=== PATIENT | male | born 1945 | race Caucasian/White ===

== ENCOUNTER → 2016-11-26 | Day surgery (SDC) | payer OTHER ==
[~2016-11-26] MED LIST: ACETAMINOPHEN 1000 MG/100 ML 100 ML IV ONE; BUPIVACAINE/EPINEPHRINE 0.25% PF 30 ML VIAL INFIL ONE; KETOROLAC TROMETHAMINE 30 MG/ML (IVP) VIAL IV PUSH ONE; LACTATED RINGER'S 1000 ML INJ 1,000 ML ONE; LIDOCAINE 1.5%/EPINEPHrine 1:200,000 PF SOLN 30 ML AMP ONE; MIDAZOLAM HCL 2 MG/2 ML VIAL ONE; NEOMYCIN/POLYMYXIN/BACITRACIN OINT 15 GM TUBE TOPICAL ONE; ONDANSETRON HCL 4 MG/2 ML VIAL IV PUSH ONE; PROPOFOL 200 MG/20 ML AMP IV ONE; ceFAZolin INJ 1,000 MG VIAL ONE
--- NOTE | 2016-11-26 11:32 | TN ---
cc: BARTOLOME GARCIA M.D. DATE OF SURGERY: 11/26/2016 DIAGNOSIS/PROCEDURE 1. Basal cell carcinoma of the right nasal ala. The procedure is a wide local excision resulting in a defect of 2 x 1 cm. This required a bilobed fasciocutaneous flap and a 3 x 0.5 cm conchal cartilage graft. 2. Basal cell carcinoma located on the upper posterior ear with a defect of 2 x 2 cm. This required a 2.5 cm intermediate repair. SURGEON Bartolome Garcia MD, FACS. ANESTHESIA LMA general, plus a total of 10 cc of 1% lidocaine with epinephrine. ESTIMATED BLOOD LOSS Minimal. COMPLICATIONS None. DETAILS OF PROCEDURE He was properly consented, marked and properly anesthetized. The skin was sterilized with Microcyn and sterile draping applied. Excision was done of the lesion located on the right nasal ala that included the rim. This was sent for frozen section where Dr. Elizabeth Arellano, pathology at [place], failed to demonstrate any further pathology at the margins the. The defect was 2 x 1 cm. Due to the proximity to the alar rim a 3 x 0.5 cm ear conchal graft was harvested posteriorly. It was properly harvested and put into the defect. A bilobed fasciocutaneous flap was elevated and rotated and inset into the defect for a secondary defect of 3 x 2. The suture material utilized was 5-0 Monocryl suture and 5-0 fast-absorbing gut. The posterior lesion located on the upper posterior ear miguel was properly ellipsed for a 2 to 2.5 cm secondary defect and this required an intermediate repair which was done utilizing 3-0 Monocryl suture and 3-0 Prolene suture. Of note, the same suture material was utilized to close the defect that we harvested in the posterior ear. Absorbent dressings were applied. Overall the patient tolerated the procedure well. He was awakened, extubated in the operating room and transferred back to the post-anesthesia care unit in stable conditions. No complications were appreciated. The patient tolerated the procedure fairly well. MD MIKKI King/MARY /11:10 AM /11:20 AM MULUGETA
== END | disposition home or self-care (01) ==
LOC: ESDC 09:10
PROVIDERS: ATTEND Plastic Surgery
DX: C44.311 Basal cell carcinoma of skin of nose (principal); C44.212 Basal cell carcinoma of skin of right ear and external auricular canal
CPT/HCPCS: 00300; 11642; 12051; 15732; 88305; 88331; J0131; J0690; J1885; J2250; J2405; J3010; J7120